=== PATIENT | female | born 1950 | race Caucasian/White ===

== ENCOUNTER → 2018-09-11 10:33 | Outpatient (CLI) | payer OTHER, SELFPAY ==
--- NOTE | 2018-09-11 | DI.MG.S_ITS ---
BILATERAL DIGITAL SCREENING MAMMOGRAM 3D/2D WITH CAD POST LUMPECTOMY: 09/11/2018 CLINICAL: Routine screening. Personal history of breast cancer. Family history of breast cancer. Comparison is made to exams dated: 09/08/2017 mammogram, 10/06/2016 mammogram, and 10/06/2015 mammogram - [facility]. The tissue of both breasts is heterogeneously dense. This may lower the sensitivity of mammography. Current study was also evaluated with a Computer Aided Detection (CAD) system. There are benign post operative findings in the right breast. No significant masses, calcifications, or other findings are seen in either breast. There has been no significant interval change. IMPRESSION: There is no mammographic evidence of malignancy. A 1 year screening mammogram is recommended. This exam was interpreted at Station ID: [id number]. NOTE: For mammograms, a report in lay terms will be sent to the patient. Approximately 15% of breast malignancies will not be visualized mammographically. In the management of a palpable breast mass, a negative mammogram must not discourage biopsy of a clinically suspicious lesion. Electronically Signed By: Wilmer bello/catracho:09/11/2018 20:22:03 copy to: YOJANA CURIEL letter sent: Normal Exam ACR BI-RADS Category 2: Benign Finding(s) 3342F
== END ==
PROVIDERS: Family Provider Internal Medicine Endocrinology, Diabetes & Metabolism; PCP Family Medicine; Visit Provider Family Medicine
DX: Z12.31 Encounter for screening mammogram for malignant neoplasm of breast (principal); Z85.3 Personal history of malignant neoplasm of breast; Z80.3 Family history of malignant neoplasm of breast
CPT/HCPCS: 77063; 77067

== ENCOUNTER → 2018-10-17 09:11 | Outpatient (CLI) | payer OTHER, SELFPAY ==
[2018-10-17 09:30] LABS: Specimen Label MYRIAD KIT
== END ==
PROVIDERS: Family Provider Obstetrics & Gynecology; PCP Family Medicine; Visit Provider Internal Medicine Hematology & Oncology
DX: Z02.9 Encounter for administrative examinations, unspecified (principal)
CPT/HCPCS: 36415

== ENCOUNTER → 2019-10-15 11:26 | Outpatient (CLI) | payer MEDICARE, SELFPAY ==
--- NOTE | 2019-10-15 11:29 | DI.MG.S_ITS ---
BILATERAL DIGITAL SCREENING MAMMOGRAM 3D/2D WITH CAD POST LUMPECTOMY: 10/15/2019 CLINICAL: Routine screening. Personal history of right breast cancer. Family history of breast cancer. Comparison is made to exams dated: 09/11/2018 mammogram, 09/08/2017 mammogram, 10/06/2016 mammogram, 09/30/2014 mammogram, and 10/06/2015 mammogram - [facility]. The tissue of both breasts is heterogeneously dense. This may lower the sensitivity of mammography. Current study was also evaluated with a Computer Aided Detection (CAD) system. There are benign calcifications in the right breast. There also are benign post operative findings in the right breast. No significant masses, calcifications, or other findings are seen in either breast. There has been no significant interval change. IMPRESSION: There is no mammographic evidence of malignancy. A 1 year screening mammogram is recommended. This exam was interpreted at Station ID: [id number]. NOTE: For mammograms, a report in lay terms will be sent to the patient. Approximately 15% of breast malignancies will not be visualized mammographically. In the management of a palpable breast mass, a negative mammogram must not discourage biopsy of a clinically suspicious lesion. Electronically Signed By: Ashish de la fuente/catracho:10/15/2019 19:04:26 copy to: Velvet Franklin letter sent: Normal Exam ACR BI-RADS Category 2: Benign Finding(s) 3342F
== END ==
PROVIDERS: Family Provider Obstetrics & Gynecology; PCP Family Medicine; Visit Provider Internal Medicine Hematology & Oncology
DX: Z12.31 Encounter for screening mammogram for malignant neoplasm of breast (principal); Z85.3 Personal history of malignant neoplasm of breast; Z80.3 Family history of malignant neoplasm of breast
CPT/HCPCS: 77063; 77067

== ENCOUNTER → 2019-11-13 11:41 | Oncology outpatient (ONC) | payer MEDICARE, OTHER, SELFPAY ==
[2018-09-13 11:26] LABS: Add Manual Diff / Slide Review NO; Basophils Percent Auto 0.9 % (0-2); Eosinophils Percent Auto 2.2 % (2-4); Hemoglobin 13.6 g/dL (12.0-16.0); Mean Corpuscular HGB Conc 33.9 % (30-36); Mean Corpuscular Hemoglobin 31.7 PG (26-34); Mean Corpuscular Volume 93.6 fL (80-100); Monocytes Percent Auto 9.3 % (3-14); Neutrophils Absolute Auto 3900 /uL (3000-5900); Neutrophils Percent Auto 55.6 % (50-75); Platelet Count 332 X10^3/uL (150-400); Red Blood Cell Count 4.27 X10^6/uL (4.0-5.2)
[2018-09-13 11:43] LABS: Alanine Aminotransferase 24 IU/L (9-52); Albumin 4.2 g/dL (3.5-5.0); Albumin Globulin Ratio 1.5 (1.0-2.8); Alkaline Phosphatase 59 U/L (38-126); Aspartate Aminotransferase 23 IU/L (14-36); Bilirubin Total 0.4 mg/dL (0.2-1.3); Blood Urea Nitrogen 20 mg/dL (7-17); Calcium 9.5 mg/dL (8.4-10.2); Carbon Dioxide 26 mmol/L (22-32); Chloride 104 mmol/L (98-107); Estimated Glomerular Filt Rate > 60.0 mL/min (>60); Globulin 2.8 g/dL (1.7-4.1); Glucose 97 mg/dL (80-110); HEMOLYSIS < 15 (0-50); Potassium 3.8 mmol/L (3.4-5.1); Sodium 141 mmol/L (137-145)
[2018-09-13 11:48] VITALS: BP 119/82; PULSE 89; RESP 18; TEMP 36.8; O2SAT 95
--- NOTE | 2018-09-13 11:51 | P.PNONC_ITS ---
PN -Subjective Interval history: 68-year-old female with history of lobular carcinoma of the right breast presents today for scheduled regular follow-up visit. Patient was diagnosed with right breast T1c N0 M0 invasive lobular cancer in August 2010, well differentiated, ER/[place] positive at 95% and 20% respectively, Ki 67 of 5%, and HER2 at 1+. Patient underwent partial mastectomy with sentinel node dissection. No lymphovascular invasion and all margins were negative. Her Oncotype DX score was 10. Therefore no adjuvant chemotherapy was provided. Patient thereafter underwent radiation treatment. Then he received 3 years of tamoxifen from March 2011-September 2014. It was discontinued because of cataract formation. Arimidex inhibitor was discussed with the patient, however patient was not interested. Since then patient has been undergoing active surveillance without evidence of disease recurrence or metastasis. The most recent mammogram was performed on 09/12/2018. And the mammogram was without any abnormal findings. One year follow-up mammogram was recommended. Patient just came back from [place] where she took care of her sister who was diagnosed with breast cancer recently. Patient reported that she noticed that she has a very strong family history which I summarized as follows. Her sister Bia recommended full genetic testing. Mother: melanoma Father: prostate cancer Sisters 3/4: breast cancer, old sister, diagnosed at age 33, another sister at age 61. Brother: colon cancer and melanoma, from colon cancer at age 64. Maternal aunt: breast cancer, colon cancer Maternal great aunt: stomach cancer Paternal cousin: melanoma, 60-70 yo. There are some other relatives might have cancer, but not sure what type. - Additional ROS All systems PM: reviewed and no additional remarkable complaints except as stated Home Medications and Allergies Home Medications Medication Instructions Recorded Confirmed Type BIOTIN (Biotin) 1,000 mcg PO QDAY #0 12/20/12 09/13/18 History CHOLECALCIFEROL (VITAMIN D3) 2,000 mg PO QDAY #0 12/20/12 09/13/18 History cetirizine 10 mg PO QDAY #0 tab 05/24/16 09/13/18 History fluticasone [Flonase Allergy 1 spray INTRANASAL QDAY #0 08/23/16 09/13/18 History Relief] montelukast [Singulair] 10 mg PO QDAY #0 08/23/16 09/13/18 History [DRY EYE RELIEF] 2 drp EYE-BOTH BID #0 10/06/16 09/13/18 History [ESTRADIOL] 0.2 % VAGINAL SEE INSTRUCTIONS #30 09/05/17 09/13/18 Rx gm Bifidobacterium infantis [Align] 4 mg PO Q DAY #0 09/12/17 09/13/18 History Allergies Allergy/AdvReac Type Severity Reaction Status Date / Time kiwi [KIWI] Allergy Severe TONGUE/LIP Verified 09/13/18 11:50 NUMBNESS, SWELLING, GI UPSET scallops [SCALLOPS] Allergy Severe GI Verified 09/13/18 11:50 UPSET/PAIN, LIP SWELLING Sulfa (Sulfonamide Allergy Intermediate ABDOMINAL Verified 09/13/18 11:50 Antibiotics) PAIN, [SULFA (SULFONAMIDE THROAT ANTIBIOTICS)] SWELLING ENVIRONMENTAL ALLERGIES Allergy Severe WATERY/ITCHY Uncoded 01/17/18 12:03 EYES, CONGESTIONS Exam Vital signs: Last Vital Signs Temp 98.3 F 09/13/18 11:48 Pulse 89 09/13/18 11:48 Resp 18 09/13/18 11:48 BP 119/82 09/13/18 11:48 Pulse Ox 95 09/13/18 11:48 ECOG 1 Narrative: Constitutional: WDWN, NAD, average body habitus, well groomed, pleasant and cooperative. HEENT: NCAT, EOMI, PERRLA, anicteric sclera, no hearing difficulty; Oral mucus membrane moist and without ulcers. Neck: Supple, symmetrical, and tracheal midline; No palpable thyromegaly and no palpable lymph nodes. Respiratory: No use of accessory muscles. Clear to auscultation, and no wheezes or rales or rubs. Cardiovascular: Regular rate and rhythm, S1 and S2 normal, no murmurs gallops or rubs. No JVD. No pitting edema of lower extremities. Abdomen: Soft, nontender, non-distended, bowel sounds normal, no palpable organomegaly, no hernia, no palpable masses. Lower extremities: No palpable pedal edema. Lymphatic: no palpable lymph nodes in the neck, axillae, or groins. Musculoskeletal: normal gait and station, no clubbing, no cyanosis, no pitting edema. Skin: no rashes, no ulcers, no petechiae Neurological: Awake and alert and oriented x3. CN II-XII grossly intact. No focal motor or sensory deficit. Psychiatric: Good judgment, good insight, normal affect, normal thought process , cooperative, no depression, no anxiety. Breast exam: deferred. Results - Labs Laboratory Last Values WBC 7.0 X10^3/uL (4.5-11.0) 09/13/18 11:13 RBC 4.27 X10^6/uL (4.0-5.2) 09/13/18 11:13 Hgb 13.6 g/dL (12.0-16.0) 09/13/18 11:13 Hct 40.0 % (36-46) 09/13/18 11:13 MCV 93.6 fL (80-100) 09/13/18 11:13 MCH 31.7 PG (26-34) 09/13/18 11:13 MCHC 33.9 % (30-36) 09/13/18 11:13 RDW 13.0 % (11.6-14.8) 09/13/18 11:13 Plt Count 332 X10^3/uL (150-400) 09/13/18 11:13 Neut % (Auto) 55.6 % (50-75) 09/13/18 11:13 Lymph % (Auto) 32.0 % (25-40) 09/13/18 11:13 [place] % (Auto) 9.3 % (3-14) 09/13/18 11:13 Eos % (Auto) 2.2 % (2-4) 09/13/18 11:13 Baso % (Auto) 0.9 % (0-2) 09/13/18 11:13 Neut # (Auto) 3900 /uL (5585-9461) 09/13/18 11:13 Sodium 141 mmol/L (137-145) 09/13/18 11:13 Potassium 3.8 mmol/L (3.4-5.1) 09/13/18 11:13 Chloride 104 mmol/L (98-107) 09/13/18 11:13 Carbon Dioxide 26 mmol/L (22-32) 09/13/18 11:13 BUN 20 mg/dL (7-17) H 09/13/18 11:13 Creatinine 0.50 mg/dL (0.52-1.04) L 09/13/18 11:13 Estimated GFR > 60.0 mL/min (>60) 09/13/18 11:13 BUN/Creatinine Ratio 40.0 (6-22) H 09/13/18 11:13 Glucose 97 mg/dL (80-110) 09/13/18 11:13 Calcium 9.5 mg/dL (8.4-10.2) 09/13/18 11:13 Total Bilirubin 0.4 mg/dL (0.2-1.3) 09/13/18 11:13 AST 23 IU/L (14-36) 09/13/18 11:13 ALT 24 IU/L (9-52) 09/13/18 11:13 Alkaline Phosphatase 59 U/L (38-126) 09/13/18 11:13 Total Protein 7.0 g/dL (6.3-8.2) 09/13/18 11:13 Albumin 4.2 g/dL (3.5-5.0) 09/13/18 11:13 Globulin 2.8 g/dL (1.7-4.1) 09/13/18 11:13 Albumin/Globulin Ratio 1.5 (1.0-2.8) 09/13/18 11:13 - Imaging Additional studies: Procedures Total knee replacement (12/15/14) Assessment and Plan (1) Malignant neoplasm of right breast, stage 1, estrogen receptor positive Assessment and plan I reviewed the mammogram from yesterday. It was completely normal without any abnormal findings. One year follow-up visit is recommended. I talked with the patient that given her very strong family history, I agree with her that genetic testing is warranted. I will order a [facility] test. I talked with the patient that it will test a variety of genes not just BRCA 1/2. I think this is one of the tests that is best suited for her family history. Patient lives on [facility]. She will plan to come in October of 2018 to do the test. I talked with the patient that I will see her after the results are available for review.
--- NOTE | 2018-11-01 11:19 | ONC.PN ---
PN -Subjective Interval history: 68-year-old female with history of lobular carcinoma of the right breast presents today for scheduled regular follow-up visit. Patient was diagnosed with right breast T1c N0 M0 invasive lobular cancer in August 2010, well differentiated, ER/[place] positive at 95% and 20% respectively, Ki 67 of 5%, and HER2 at 1+. Patient underwent partial mastectomy with sentinel node dissection. No lymphovascular invasion and all margins were negative. Her Oncotype DX score was 10. Therefore no adjuvant chemotherapy was provided. Patient thereafter underwent radiation treatment. Then he received 3 years of tamoxifen from March 2011-September 2014. It was discontinued because of cataract formation. Arimidex inhibitor was discussed with the patient, however patient was not interested. Since then patient has been undergoing active surveillance without evidence of disease recurrence or metastasis. The most recent mammogram was performed on 09/12/2018. And the mammogram was without any abnormal findings. One year follow-up mammogram was recommended. Patient just came back from [place] where she took care of her sister who was diagnosed with breast cancer recently. Patient reported that she noticed that she has a very strong family history which I summarized as follows. Her sister Bia recommended full genetic testing. Mother: melanoma Father: prostate cancer Sisters 3/4: breast cancer, old sister, diagnosed at age 33, another sister at age 61. Brother: colon cancer and melanoma, from colon cancer at age 64. Maternal aunt: breast cancer, colon cancer Maternal great aunt: stomach cancer Paternal cousin: melanoma, 60-70 yo. There are some other relatives might have cancer, but not sure what type. Patient presents here today for review of the [employer] genetic test results. I gave a copy to the patient. The [employer] analysis did not review any clinically significant mutations. Patient also told me that the same genetic analysis of her sister in [place] also did not show any significant mutations. Her another sister is now waiting for the results. - Patient Self-Reported Symptoms SR Skin issues: Dry skin - Additional ROS All systems PM: reviewed and no additional remarkable complaints except as stated Home Medications and Allergies Home Medications Medication Instructions Recorded Confirmed Type BIOTIN (Biotin) 1,000 mcg PO QDAY #0 12/20/12 11/01/18 History CHOLECALCIFEROL (VITAMIN D3) 2,000 mg PO QDAY #0 12/20/12 11/01/18 History cetirizine 10 mg PO QDAY #0 tab 05/24/16 11/01/18 History fluticasone [Flonase Allergy 1 spray INTRANASAL QDAY #0 08/23/16 11/01/18 History Relief] montelukast [Singulair] 10 mg PO QDAY #0 08/23/16 11/01/18 History [DRY EYE RELIEF] 2 drp EYE-BOTH BID #0 10/06/16 11/01/18 History [ESTRADIOL] 0.2 % VAGINAL SEE INSTRUCTIONS #30 09/05/17 11/01/18 Rx gm Bifidobacterium infantis [Align] 4 mg PO Q DAY #0 09/12/17 11/01/18 History red yeast rice 600 mg PO DAILY 11/01/18 11/01/18 History Allergies Allergy/AdvReac Type Severity Reaction Status Date / Time kiwi [KIWI] Allergy Severe TONGUE/LIP Verified 09/13/18 11:50 NUMBNESS, SWELLING, GI UPSET scallops [SCALLOPS] Allergy Severe GI Verified 09/13/18 11:50 UPSET/PAIN, LIP SWELLING Sulfa (Sulfonamide Allergy Intermediate ABDOMINAL Verified 09/13/18 11:50 Antibiotics) PAIN, [SULFA (SULFONAMIDE THROAT ANTIBIOTICS)] SWELLING ENVIRONMENTAL ALLERGIES Allergy Severe WATERY/ITCHY Uncoded 01/17/18 12:03 EYES, CONGESTIONS Exam Vital signs: Last Vital Signs Temp 98.3 F 09/13/18 11:48 Pulse 89 09/13/18 11:48 Resp 18 09/13/18 11:48 BP 119/82 09/13/18 11:48 Pulse Ox 95 09/13/18 11:48 ECOG 1 Narrative: Constitutional: WDWN, NAD, average body habitus, well groomed, pleasant and cooperative. HEENT: NCAT, EOMI, PERRLA, anicteric sclera, no hearing difficulty; Oral mucus membrane moist and without ulcers. Neck: Supple, symmetrical, and tracheal midline; No palpable thyromegaly and no palpable lymph nodes. Respiratory: No use of accessory muscles. Clear to auscultation, and no wheezes or rales or rubs. Cardiovascular: Regular rate and rhythm, S1 and S2 normal, no murmurs gallops or rubs. No JVD. No pitting edema of lower extremities. Abdomen: Soft, nontender, non-distended, bowel sounds normal, no palpable organomegaly, no hernia, no palpable masses. Lower extremities: No palpable pedal edema. Lymphatic: no palpable lymph nodes in the neck, axillae, or groins. Musculoskeletal: normal gait and station, no clubbing, no cyanosis, no pitting edema. Skin: no rashes, no ulcers, no petechiae Neurological: Awake and alert and oriented x3. CN II-XII grossly intact. No focal motor or sensory deficit. Psychiatric: Good judgment, good insight, normal affect, normal thought process, cooperative, no depression, no anxiety. Breast exam: deferred. Results - Labs Laboratory Last Values WBC 7.0 X10^3/uL (4.5-11.0) 09/13/18 11:13 RBC 4.27 X10^6/uL (4.0-5.2) 09/13/18 11:13 Hgb 13.6 g/dL (12.0-16.0) 09/13/18 11:13 Hct 40.0 % (36-46) 09/13/18 11:13 MCV 93.6 fL (80-100) 09/13/18 11:13 MCH 31.7 PG (26-34) 09/13/18 11:13 MCHC 33.9 % (30-36) 09/13/18 11:13 RDW 13.0 % (11.6-14.8) 09/13/18 11:13 Plt Count 332 X10^3/uL (150-400) 09/13/18 11:13 Neut % (Auto) 55.6 % (50-75) 09/13/18 11:13 Lymph % (Auto) 32.0 % (25-40) 09/13/18 11:13 [place] % (Auto) 9.3 % (3-14) 09/13/18 11:13 Eos % (Auto) 2.2 % (2-4) 09/13/18 11:13 Baso % (Auto) 0.9 % (0-2) 09/13/18 11:13 Neut # (Auto) 3900 /uL (8529-7014) 09/13/18 11:13 Sodium 141 mmol/L (137-145) 09/13/18 11:13 Potassium 3.8 mmol/L (3.4-5.1) 09/13/18 11:13 Chloride 104 mmol/L (98-107) 09/13/18 11:13 Carbon Dioxide 26 mmol/L (22-32) 09/13/18 11:13 BUN 20 mg/dL (7-17) H 09/13/18 11:13 Creatinine 0.50 mg/dL (0.52-1.04) L 09/13/18 11:13 Estimated GFR > 60.0 mL/min (>60) 09/13/18 11:13 BUN/Creatinine Ratio 40.0 (6-22) H 09/13/18 11:13 Glucose 97 mg/dL (80-110) 09/13/18 11:13 Calcium 9.5 mg/dL (8.4-10.2) 09/13/18 11:13 Total Bilirubin 0.4 mg/dL (0.2-1.3) 09/13/18 11:13 AST 23 IU/L (14-36) 09/13/18 11:13 ALT 24 IU/L (9-52) 09/13/18 11:13 Alkaline Phosphatase 59 U/L (38-126) 09/13/18 11:13 Total Protein 7.0 g/dL (6.3-8.2) 09/13/18 11:13 Albumin 4.2 g/dL (3.5-5.0) 09/13/18 11:13 Globulin 2.8 g/dL (1.7-4.1) 09/13/18 11:13 Albumin/Globulin Ratio 1.5 (1.0-2.8) 09/13/18 11:13 - Imaging Additional studies: Procedures Total knee replacement (12/15/14) Assessment and Plan (1) Malignant neoplasm of right breast, stage 1, estrogen receptor positive Problem details: She was diagnosed with right breast T1c N0 M0 invasive lobular cancer in 08/2010, well differentiated, ER/WY positive at 95% and 20% respectively, Ki 67 of 5%, and HER2 at 1+. She underwent partial mastectomy with sentinel node dissection. No lymphovascular invasion and all margins were negative. Her Oncotype DX score was 10. Therefore no adjuvant chemotherapy was provided. Patient thereafter underwent radiation treatment. Then he received 3 years of tamoxifen from March 2011-September 2014. It was discontinued because of cataract formation. Arimidex inhibitor was discussed with the patient, however patient was not interested. Since then patient has been undergoing active surveillance without evidence of disease recurrence or metastasis. Assessment and plan: I reviewed the [email or web address] genetic test results with the patient. Apparently there is no clinically significant mutations identified. However patient's strong family history does suggest some possible genetic event. I talked with her that it could be that it is an unknown gene or it is environmentally determined. Patient voiced understanding. I will have the patient continue annual mammogram in September, and will see the patient after the mammogram is done. I also asked the patient to let me know the test results of her sister if Ok with her sister.
[2018-11-01 11:24] VITALS: BP 135/84; PULSE 91; RESP 19; TEMP 37.1; O2SAT 94
--- NOTE | 2018-11-13 14:00 | ONC.SCHED ---
per request from [facility]: myriad genetic testing order, chart notes and lab results were faxed to Post-Service unit at
--- NOTE | 2018-12-18 13:26 | ONC.SCHED ---
Salome-patient called concerned about a letter she received from [facility]. Patient faxed me a copy of the letter and it clearly said that she would not be held responsible from anything because she received the service from a [facility] contracted provider. I called [facility] and double checked with Kasie there and she said the samething. I placed a copy of the letter underneath [facility] [place] in the chart. I did not scan in to the chart as it is the patients own information.
--- NOTE | 2019-09-18 12:35 | ONC.SCHED ---
Called patient today to have her reschedule her mammogram as she did not show up or cancel for today's appt. Asked her to please call radiology to reschedule and then call clinic back to reschedule her one year follow up appointment. Canceled her 09/19/19 appt as no mammo completed
--- NOTE | 2019-09-23 15:18 | ONC.SCHED ---
[employer] Reina Oleary called patient to advise she needs labs completed before her 10/21/19 visit. Orders are in the system
--- NOTE | 2019-10-17 15:51 | ONC.SCHED ---
Spoke with Dede at [facility] (Velvet Franklin PCP). They are inputting new auth/referral for new insurance [employer]. Will fax auth when complete
[2019-11-13 11:51] LABS: Add Manual Diff / Slide Review NO; Basophils Absolute Auto 100 /uL (0-100); Basophils Percent Auto 0.8 % (0-2); Eosinophils Absolute Auto 200 /uL (0-450); Eosinophils Percent Auto 2.3 % (2-4); Hematocrit 39.7 % (36-46); Hemoglobin 13.7 g/dL (12.0-16.0); Lymphocytes Absolute Auto 2400 /uL (1100-4500); Lymphocytes Percent Auto 30.1 % (25-40); Mean Corpuscular HGB Conc 34.5 % (30-36); Mean Corpuscular Hemoglobin 32.3 PG (26-34); Mean Corpuscular Volume 93.5 fL (80-100); Monocytes Absolute Auto 600 /uL (0-900); Neutrophils Absolute Auto 4700 /uL (1500-7000); Neutrophils Percent Auto 59.8 % (50-75); Platelet Count 323 X10^3/uL (150-400); Red Blood Cell Count 4.25 X10^6/uL (4.0-5.2); White Blood Cell Count 7.9 X10^3/uL (4.5-11.0)
[2019-11-13 12:03] LABS: Alanine Aminotransferase 21 IU/L (<35); Albumin 4.4 g/dL (3.5-5.0); Albumin Globulin Ratio 1.4 (1.0-2.8); Alkaline Phosphatase 72 U/L (38-126); Aspartate Aminotransferase 27 IU/L (14-36); Bilirubin Total 0.6 mg/dL (0.2-1.3); Blood Urea Nitrogen 21 mg/dL (7-17); Calcium 9.5 mg/dL (8.4-10.2); Carbon Dioxide 27 mmol/L (22-32); Chloride 104 mmol/L (98-107); Estimated Glomerular Filt Rate > 60.0 mL/min (>60); Globulin 3.1 g/dL (1.7-4.1); Glucose 132 mg/dL (80-110); HEMOLYSIS < 15 (0-50); Potassium 3.8 mmol/L (3.4-5.1); Sodium 140 mmol/L (137-145); Total Protein 7.5 g/dL (6.3-8.2)
--- NOTE | 2019-11-14 08:53 | ONC.SCHED ---
Please do not move appointment for 11/25. This patient has been moved already. Thank you.
== END ==
PROVIDERS: PCP Family Medicine; Visit Provider Internal Medicine Hematology & Oncology
DX: Z08 Encounter for follow-up examination after completed treatment for malignant neoplasm (principal); Z85.3 Personal history of malignant neoplasm of breast
CPT/HCPCS: 36415; 80053; 85025; 99214

== ENCOUNTER → 2020-04-20 09:53 | Outpatient (CLI) | payer MEDICARE, SELFPAY ==
[2020-04-21 09:35] LABS: COVID19 Sendout Not Detected (Not Detect)
== END ==
PROVIDERS: Family Provider Obstetrics & Gynecology; PCP Family Medicine; Visit Provider Student in an Organized Health Care Education/Training Program
DX: Z01.812 Encounter for preprocedural laboratory examination (principal)
CPT/HCPCS: 87635

== ENCOUNTER 2020-04-23 11:01 | Outpatient (CLI) | payer MEDICARE, SELFPAY ==
[2020-04-23] VITALS (8 sets, daily range): BP systolic 118–143; BP diastolic 77–95; PULSE 64–85; RESP 14–18; TEMP 36.8; O2SAT 93–98
--- NOTE | 2020-04-23 11:03 | DI.RAD.S_ITS ---
PROCEDURE: PAIN L/S TRANSFORAMINAL INJECT INDICATIONS: right lower extremity radiculopathy COMPARISON: None. FINDINGS: Fluoroscopic spot filming was performed to verify placement of spinal needles at the right L4-L5 level(s), as labeled on the films. Appropriate location(s) of the needle tip(s) was confirmed by injection of iodinated contrast. IMPRESSION: Spinal needle at the level of the right L4-L5 neural foramen. Dictated by: Ora Ledezma MD, PhD on 04/24/2020 at 14:05 Approved by: Ora Ledezma MD, PhD on 04/24/2020 at 14:05
[2020-04-23] MEDS: fentaNYL 100 MCG/2 ML INJ 50 MCG IV (12:02)
[2020-04-23] MEDS: MIDAZOLAM 5 MG/5 ML VIAL IV (12:02)
[2020-04-23] MEDS: BETAMETHASONE 30 MG/5 ML MDV 6 MG INJ (12:12)
[2020-04-23] MEDS: DEXAMETHASONE 10 MG/ML VIAL 20 MG INJ (12:12)
[2020-04-23] MEDS: IOPAMIDOL 15 ML VIAL 3 ML INJ (12:12)
[2020-04-23] MEDS: BUPIVACAINE 0.25% (PF) VIAL 2 ML INJ (12:12)
--- NOTE | 2020-04-23 12:21 | P.PCN_ITS ---
Date/Time/Diagnoses Date of procedure: 04/23/20 Time of procedure: 12:21 Pre-procedure diagnosis: 1. FORAMINAL STENOSIS WITH LE SYMPTOMS Post-procedure diagnosis: same Procedure Notes Procedure: 1. FLUOROSCOPICALLY GUIDED CONTRAST CONTROLLED TRANSFORAMINAL EPIDURAL STEROID INJECTION - RIGHT L3/4 TFESI Indications: Nicole is referred by for treatment of Foraminal Stenosis with right LE Symptoms Physician: Ousmane Winn Total Fluoroscopy time (seconds): 9 Total sedation minutes: 24 Complications: none Procedure in detail & Post-procedure care: FINDINGS Foraminal Nerve Root Compression secondary to disc disease and facet hypertrophy DESCRIPTION OF PROCEDURE Following review of allergy and review of potential side effects and complications, including, but not necessarily limited to, infection, allergic reaction, local tissue breakdown, stroke, temporary or permanent nerve injury, paralysis, and possible , the patient indicated that the patient understood and agreed to proceed. An informed consent document was signed by the patient, witnessed by a nurse, and placed in the patient's chart. Additionally, other treatment options including medications, modalities, and physical therapy were reviewed with the patient. After review of previous anaesthesic history and IV conscious sedation the patient was deemed safe to proceed with today?s procedure with IV conscious sedation as ASA class II designation. Safety time-out was performed to confirm patient ID, procedure to be performed and site of procedure. IV sedation was accomplished with a combination of 2mg of Versed and 50mcg of Fentanyl was administered by the RN after DO order, titrated to patient comfort during the course of the procedure while the patient remained responsive to all verbal commands In the prone position following sterile prep and drape of the lumbar region, the right L3/4 posterior neuroforamen was identified fluoroscopically. The skin was anesthetized via a 25-gauge 1.5-inch needle with 1% lidocaine solution. At this point, a 25-gauge 3.5-inch spinal needle was atraumatically introduced and advanced under fluoroscopic guidance through the posterior right L3/4 ne uroforamen to approximately the anterior aspect of the canal. Depth was confirmed on lateral view. Following negative aspiration, injection of approximately 1.5 cc of Isovue 200 under live fluoroscopy in the AP view confirmed excellent flow along the nerve root, into the epidural space without vascular or intrathecal uptake observed Radiological data, including multiple fluoroscopic views of the lumbosacral spine, reveal a spinal needle at the right L3/4 posterior neuroforamen. Subsequent views show flow of contrast material flowing superiorly and inferiorly along the nerve root confirming epidural flow. Subsequently, a test dose of 1.5 cc of 1% lidocaine solution was administered and patient was observed for two minutes for signs or symptoms of complications, including abdominal pain, shortness of breath, bilateral upper or lower extremity weakness, nausea and vomiting, prior to steroid injection. At this point, a total of 3cc or 20mg of dexamethasone and 6mg of betamethasone was injected without incident. The patient tolerated the procedure well without signs or symptoms of complications prior to transfer to the recovery area continued monitoring without incident. The patient was then transferred to the recovery area where they were observed for an appropriate time after the injection. The patient reported a VAS score of 7 prior to the procedure and a post-procedure VAS of 0. POST OP INSTRUCTIONS The patient was provided a Pain Log to continue to record their response to the target-specific procedure prior to follow-up visit with their referring physician. Additionally, specific post-injection care instructions and a contact number to our office were provided if concerns arise regarding possible complications associated with the procedure are suspected.
--- NOTE | 2020-04-23 15:46 | PC.NURSE ---
Tolerated procedure without incident. VSS upon transfer to post procedure room to LESLEE Berrios. Versed and Fentanyl administered by Nicol Lopez. All other meds given by Dr. Winn.
== END 2020-04-23 12:39 ==
LOC: RAD 11:02
PROVIDERS: Family Provider Obstetrics & Gynecology; PCP Family Medicine; Referring Provider Physical Medicine & Rehabilitation; Visit Provider Physical Medicine & Rehabilitation
DX: M48.061 Spinal stenosis, lumbar region without neurogenic claudication (principal); M51.16 Intervertebral disc disorders with radiculopathy, lumbar region
CPT/HCPCS: 64483; 99152; J0702; J1100; J2250; J3010

== ENCOUNTER → 2020-10-16 10:05 | Outpatient (CLI) | payer MEDICARE, SELFPAY ==
--- NOTE | 2020-10-16 | DI.MG.S_ITS ---
BILATERAL DIGITAL SCREENING MAMMOGRAM 3D/2D WITH CAD: 10/16/2020 CLINICAL: Routine screening. Personal history of right breast cancer. Family history of breast cancer. Comparison is made to exams dated: 10/15/2019 mammogram, 09/11/2018 mammogram, and 09/08/2017 mammogram - [facility]. The tissue of both breasts is heterogeneously dense. This may lower the sensitivity of mammography. Current study was also evaluated with a Computer Aided Detection (CAD) system. There are benign calcifications in the right breast. There also are benign post operative findings in the right breast. No significant masses, calcifications, or other findings are seen in either breast. There has been no significant interval change. IMPRESSION: BENIGN There is no mammographic evidence of malignancy. A 1 year screening mammogram is recommended. This exam was interpreted at Station ID: [id number]. NOTE: For mammograms, a report in lay terms will be sent to the patient. Approximately 15% of breast malignancies will not be visualized mammographically. In the management of a palpable breast mass, a negative mammogram must not discourage biopsy of a clinically suspicious lesion. Electronically Signed By: Jigar [email or web address]/[email or web address]:10/16/2020 12:18:47 copy to: YOJANA CURIEL letter sent: Normal Exam ACR BI-RADS Category 2: Benign Finding(s) 3342F
== END ==
PROVIDERS: Family Provider Obstetrics & Gynecology; PCP Family Medicine; Referring Provider Family Medicine; Visit Provider Family Medicine
DX: Z12.31 Encounter for screening mammogram for malignant neoplasm of breast (principal); Z80.3 Family history of malignant neoplasm of breast; Z85.3 Personal history of malignant neoplasm of breast
CPT/HCPCS: 77063; 77067

== ENCOUNTER → 2021-12-29 11:07 | Outpatient (CLI) | payer MEDICARE, SELFPAY ==
--- NOTE | 2021-12-29 11:09 | DI.MG.S_ITS ---
BILATERAL DIGITAL SCREENING MAMMOGRAM 3D/2D WITH CAD: 12/29/2021 CLINICAL: Routine screening. Family history of breast cancer. Breast cancer. Comparison is made to exams dated: 10/16/2020 mammogram, 10/15/2019 mammogram, and 09/11/2018 mammogram - [facility]. The tissue of both breasts is heterogeneously dense. This may lower the sensitivity of mammography. Current study was also evaluated with a Computer Aided Detection (CAD) system. There are benign calcifications in the right breast. There also are benign post operative findings in the right breast. No significant masses, calcifications, or other findings are seen in either breast. There has been no significant interval change. IMPRESSION: BENIGN There is no mammographic evidence of malignancy. A 1 year screening mammogram is recommended. This exam was interpreted at Station ID: [id number]. NOTE: For mammograms, a report in lay terms will be sent to the patient. Approximately 15% of breast malignancies will not be visualized mammographically. In the management of a palpable breast mass, a negative mammogram must not discourage biopsy of a clinically suspicious lesion. Electronically Signed By: Laura hatfield/catracho:12/29/2021 12:21:21 copy to: YOJANA CURIEL letter sent: Normal Exam ACR BI-RADS Category 2: Benign Finding(s) 3342F
== END ==
PROVIDERS: Family Provider Obstetrics & Gynecology; PCP Family Medicine; Referring Provider Obstetrics & Gynecology; Visit Provider Obstetrics & Gynecology
DX: Z12.31 Encounter for screening mammogram for malignant neoplasm of breast (principal); Z85.3 Personal history of malignant neoplasm of breast; Z80.3 Family history of malignant neoplasm of breast
CPT/HCPCS: 77063; 77067

== ENCOUNTER → 2023-01-04 10:54 | Outpatient (CLI) | payer MEDICARE, SELFPAY ==
--- NOTE | 2023-01-04 | DI.MG.S_ITS ---
BILATERAL DIGITAL SCREENING MAMMOGRAM 3D/2D WITH CAD: 01/04/2023 CLINICAL: Routine screening. Personal history of right breast cancer. Family history of breast cancer. Comparison is made to exams dated: 12/29/2021 mammogram, 10/16/2020 mammogram, and 10/15/2019 mammogram - [facility]. Both breasts are heterogeneously dense, which may obscure small masses (category c / 51-75% glandular tissue). Current study was also evaluated with a Computer Aided Detection (CAD) system. There are benign calcifications in the right breast. There also are benign post operative findings in the right breast. No significant masses, calcifications, or other findings are seen in either breast. There has been no significant interval change. IMPRESSION: BENIGN There is no mammographic evidence of malignancy. A 1 year screening mammogram is recommended. This exam was interpreted at Station ID: [id number]. NOTE: For mammograms, a report in lay terms will be sent to the patient. Approximately 15% of breast malignancies will not be visualized mammographically. In the management of a palpable breast mass, a negative mammogram must not discourage biopsy of a clinically suspicious lesion. Electronically Signed By: Sonny galvan/catracho:01/04/2023 11:35:32 copy to: YOJANA CURIEL letter sent: Normal Exam ACR BI-RADS Category 2: Benign Finding(s) 3342F
== END ==
PROVIDERS: Family Provider Obstetrics & Gynecology; PCP Family Medicine; Referring Provider Obstetrics & Gynecology; Visit Provider Obstetrics & Gynecology
DX: Z12.31 Encounter for screening mammogram for malignant neoplasm of breast (principal); Z85.3 Personal history of malignant neoplasm of breast; Z80.3 Family history of malignant neoplasm of breast
CPT/HCPCS: 77063; 77067

== ENCOUNTER → 2024-01-09 10:18 | Outpatient (CLI) | payer MEDICARE, SELFPAY ==
--- NOTE | 2024-01-09 10:20 | DI.MG.S_ITS ---
BILATERAL DIGITAL SCREENING MAMMOGRAM 3D/2D WITH CAD POST LUMPECTOMY: 01/09/2024 CLINICAL: Routine screening. Personal history of right breast cancer. Family history of Breast Cancer. Comparison is made to exams dated: 01/04/2023 mammogram, 12/29/2021 mammogram, and 10/16/2020 mammogram - [facility]. Both breasts are heterogeneously dense, which may obscure small masses (category c / 51-75% glandular tissue). Current study was also evaluated with a Computer Aided Detection (CAD) system. There are benign calcifications in the right breast. There also are benign post operative findings in the right breast. No significant masses, calcifications, or other findings are seen in either breast. There has been no significant interval change. IMPRESSION: BENIGN There is no mammographic evidence of malignancy. A 1 year screening mammogram is recommended. This exam was interpreted at Station ID: [id number]. NOTE: For mammograms, a report in lay terms will be sent to the patient. Approximately 15% of breast malignancies will not be visualized mammographically. In the management of a palpable breast mass, a negative mammogram must not discourage biopsy of a clinically suspicious lesion. Electronically Signed By: Manohar villarreal/[email or web address]:01/09/2024 13:01:53 copy to: YOJANA CURIEL letter sent: Normal Exam ACR BI-RADS Category 2: Benign Finding(s) 3342F
== END ==
PROVIDERS: Family Provider Obstetrics & Gynecology; PCP Family Medicine; Referring Provider Obstetrics & Gynecology; Visit Provider Obstetrics & Gynecology
DX: Z12.31 Encounter for screening mammogram for malignant neoplasm of breast (principal); Z85.3 Personal history of malignant neoplasm of breast; Z80.3 Family history of malignant neoplasm of breast; R92.333 Mammographic heterogeneous density, bilateral breasts
CPT/HCPCS: 77063; 77067

== ENCOUNTER → 2025-01-25 09:04 | Outpatient (CLI) | payer MEDICARE, SELFPAY ==
--- NOTE | 2025-01-25 09:06 | DI.MG.S_ITS ---
MM screening mammo BI: 01/25/2025. BI-RADS: 2 CLINICAL: 74-year old female for bilateral screening mammogram. No Tyrer-Cuzick risk score calculation due to the patient's personal history of breast cancer. Patient reports a history of right breast carcinoma diagnosed at age 59. Status-post right lumpectomy with hormonal therapy. Current reported family history of breast cancer: sister, second sister and paternal aunt. PRIOR EXAMS 01/09/2024, 01/04/2023, 12/29/2021, 10/16/2020, 10/15/2019, 09/11/2018, 09/08/2017, 10/06/2016, 10/06/2015. MAMMOGRAPHY TECHNIQUE: 2D and 3D (tomosynthesis) digital mammographic views obtained, with additional images as needed for full coverage. Current study was also evaluated with a Computer Aided Detection (CAD) system. DENSITY C. The breasts are heterogeneously dense, which may obscure small masses. MAMMOGRAPHY FINDINGS Right: Surgical clips present on the right. Benign-appearing calcifications and post-surgical changes noted on the right. There are no suspicious masses, calcifications, or other findings in the breast. Left: No suspicious mass, asymmetry, microcalcification, or other abnormality seen. IMPRESSION: Right * No evidence of malignancy with benign findings. Left * No evidence of malignancy. RECOMMENDATIONS Bilateral * Annual screening mammography. OVERALL ASSESSMENT CATEGORY BI-RADS-2: Benign. [employer] recommends annual screening mammography beginning at age 40 for women with average risk of breast cancer. ELECTRONICALLY SIGNED: Ashish Arriola M.D. on 01/27/2025 at 11:46:03 AM PT Interpreting Station ID: [id number]
== END ==
PROVIDERS: Family Provider Obstetrics & Gynecology; PCP Family Medicine; Referring Provider Family Medicine; Visit Provider Family Medicine
DX: Z12.31 Encounter for screening mammogram for malignant neoplasm of breast (principal); Z85.3 Personal history of malignant neoplasm of breast; Z80.3 Family history of malignant neoplasm of breast; R92.333 Mammographic heterogeneous density, bilateral breasts
CPT/HCPCS: 77063; 77067